=== PATIENT | male | born 1955 | race Caucasian/White ===

== ENCOUNTER → 2017-12-16 | Outpatient (CLI) | payer OTHER ==
[~2017-12-16] MED LIST: ACET650S21 PO; ASPI-621 PO; OXYC5CAP2 PO
[2017-12-16 14:01] LABS: BASOPHILS # (AUTO) 0.03 x10^3/uL (0-0.1); BASOPHILS % (AUTO) 0 % (0-1); EOSINOPHILS # (AUTO) 0.24 x10^3/uL (0-0.4); EOSINOPHILS % (AUTO) 3 % (1-7); LYMPHOCYTES % (AUTO) 25 % (22-44); MD NO; MEAN CORPUSCULAR HEMOGLOBIN 31.9 pg (27.5-34.5); MEAN CORPUSCULAR VOLUME 93.8 fL (81-97); MONOCYTES # (AUTO) 0.73 x10^3/uL (0.2-0.8); MONOCYTES % (AUTO) 9 % (2-9); NEUTROPHILS # (AUTO) 5.37 x10^3/uL (1.8-6.8); NEUTROPHILS % (AUTO) 63 % (42-75); PLATELET COUNT 240 x10^3/uL (130-400); RED BLOOD COUNT 5.44 x10^6/uL (4.38-5.82); RED CELL DISTRIBUTION WIDTH 13.4 % (9.4-14.8)
[2017-12-16 15:08] LABS: MICROSCOPIC NOT IND
[2017-12-16 15:11] LABS: CULTURE INDICATED? NO
== END | disposition home or self-care (01) ==
LOC: STAR 12:58
PROVIDERS: ATTEND Orthopaedic Surgery
DX: Z01.818 Encounter for other preprocedural examination (principal); M16.12 Unilateral primary osteoarthritis, left hip
CPT/HCPCS: 36415; 81003; 85025; 87081; 93005

== ENCOUNTER 2017-12-20 09:32 | Inpatient (IN) | payer OTHER ==
[~2017-12-20] VITALS: Ht 175.3 cm; Wt 91.7 kg
[~2017-12-20 09:32] MED LIST changes: -ACET650S21 PO; -ASPI-621 PO; +EPINEPHRINE 1 MG/ML, 1ML ONE; +FENTANYL PF 100 MCG/2ML ONE; +KETOROLAC 60 MG/2 ML ONE; +MIDAZOLAM 1 MG/ML, 2ML ONE; -OXYC5CAP2 PO; +PROPOFOL 100 ML ONE; +SODIUM CHLORIDE 0.9% 100 ML ONE; +TRANEXAMIC ACID 100 MG/ML, 10ML ONE
[2017-12-20] MEDS ORDERED: LACTATED RINGERS 1,000 ML IV SCH (09:46)
[2017-12-20] MEDS ORDERED: ACETAMINOPHEN 500 MG TABLET PO ONE (10:00)
[2017-12-20] MEDS ORDERED: OxyconTIN ER 10 MG TAB.ER PO ONE (10:00)
[2017-12-20] MEDS ORDERED: GABAPENTIN 300 MG CAPSULE PO ONE (10:00)
[2017-12-20] MEDS ORDERED: LABETALOL 5MG/ML, 20ML ONE (10:13)
[2017-12-20] MEDS ORDERED: ONDANSETRON 2MG/ML, 2ML ONE (10:13)
[2017-12-20] MEDS ORDERED: DEXAMETHASONE 4 MG/ML, 1ML ONE (10:13)
[2017-12-20] MEDS ORDERED: SUCCINYLCHOLINE 20 MG/ML, 10ML ONE (10:13)
[2017-12-20] MEDS ORDERED: ROCURONIUM 10 MG/ML,10ML ONE (10:13)
[2017-12-20] MEDS ORDERED: CEFAZOLIN 1,000 MG ONE (10:13)
[2017-12-20] MEDS ORDERED: FENTANYL PF 250 MCG/5ML ONE (10:27)
[2017-12-20] MEDS ORDERED: PROMETHAZINE 25 MG/ML, 1ML IV PRN (11:00)
[2017-12-20] MEDS ORDERED: morphine SULFATE 10 MG/ML, 1ML IV PRN (11:00)
[2017-12-20] MEDS ORDERED: ONDANSETRON 2MG/ML, 2ML IVPush PRN (11:00)
[2017-12-20] MEDS ORDERED: HYDROcodone/APAP 7.5-325MG/15ML UDC PO PRN (11:00)
[2017-12-20] MEDS ORDERED: hydrALAzine 20 MG/ML, 1ML IV PRN (11:00)
[2017-12-20] MEDS ORDERED: LABETALOL 5MG/ML, 20ML IV PRN (11:00)
[2017-12-20] MEDS ORDERED: OXYcodone 5 MG/5 ML ORAL.SOL UDC PO PRN (11:00)
[2017-12-20] MEDS ORDERED: MEPERIDINE/PF 50 MG/ML ONE (12:17)
[2017-12-20] MEDS: MEPERIDINE/PF 25MG/0.5ML IVPush PRN ×2 (12:20→12:38)
[2017-12-20] MEDS ORDERED: ZOLPIDEM 5MG TABLET PO PRN (12:30)
[2017-12-20] MEDS ORDERED: OXYcodone IR 5MG TABLET PO PRN (12:30)
[2017-12-20] MEDS ORDERED: BISACODYL 10 MG SUPP PR PRN (12:30)
[2017-12-20] MEDS ORDERED: PROMETHAZINE 25 MG/ML, 1ML IM PRN (12:30)
[2017-12-20] MEDS ORDERED: PROMETHAZINE 12.5 MG SUPP PR PRN (12:30)
[2017-12-20] MEDS ORDERED: ONDANSETRON 2MG/ML, 2ML IV PRN (12:30)
[2017-12-20] MEDS ORDERED: SENNA/DOCUSATE TABLET PO PRN (12:30)
[2017-12-20] MEDS ORDERED: ALUMINUM/MAG/SIMETHICONE 30 ML UDC PO PRN (12:30)
[2017-12-20] MEDS ORDERED: ONDANSETRON 4 MG TABLET PO PRN (12:30)
[2017-12-20] MEDS ORDERED: HYDROmorphone 1 MG/ML, 1ML IV PRN (12:30)
[2017-12-20] MEDS ORDERED: DIPHENHYDRAMINE 50 MG CAPSULE PO PRN (12:30)
[2017-12-20] MEDS ORDERED: MAGNESIUM HYDROXIDE 8%, 30ML UDC PO PRN (12:30)
[2017-12-20] MEDS ORDERED: DIAZEPAM 5 MG TABLET PO PRN (12:30)
[2017-12-20] MEDS ORDERED: ACETAMINOPHEN 650 MG/20.3 ML UDC PO PRN (12:30)
[2017-12-20] MEDS ORDERED: TRANEXAMIC ACID 1,000 MG in SODIUM CHLORIDE 0.9% 100 ML IVPB ONE (12:40)
[2017-12-20] MEDS ORDERED: FENTANYL PF 100 MCG/2ML ONE (12:43)
[2017-12-20] MEDS: FENTANYL PF 100 MCG/2ML IV PRN ×2 (12:48→12:58)
[2017-12-20 13:15] VITALS: BP 100/70
[2017-12-20] MEDS ORDERED: LIDOCAINE 4%, 4 ML SYR/CANN TP ONE ×2 (13:45)
[2017-12-20] MEDS ORDERED: EPHEDRINE 50 MG/ML, 1ML ONE ×2 (13:49)
[2017-12-20] MEDS: KETOROLAC 30 MG/1 ML IV SCH ×2 (13:55→21:33)
[2017-12-20] MEDS: OXYcodone IR 5MG TABLET PO SCH ×3 (13:55→21:35)
[2017-12-20] MEDS: TAMSULOSIN 0.4 MG CAP.ER.24H PO SCH (13:55)
[2017-12-20] MEDS: ACETAMINOPHEN 650 MG/20.3 ML UDC PO SCH ×2 (14:05→20:00)
[2017-12-20] MEDS: D5%-0.45% NACL 1,000 ML IV SCH ×2 (15:00→18:50)
[2017-12-20] MEDS ORDERED: CEFAZOLIN PMX 2GM/50ML 50 ML IVPB SCH (17:00)
[2017-12-20 18:36] VITALS: BP 104/66
[2017-12-20] MEDS: DOCUSATE 100 MG CAPSULE PO SCH (21:00)
[2017-12-21] MEDS ORDERED: CEFAZOLIN 2,000 MG in DEXTROSE 5% 100 ML IVPB SCH (01:00)
[2017-12-21 01:04] VITALS: BP 99/58
[2017-12-21] MEDS: D5%-0.45% NACL 1,000 ML IV SCH ×2 (01:30→08:10)
[2017-12-21] MEDS: OXYcodone IR 5MG TABLET PO SCH ×3 (01:57→09:42)
[2017-12-21] MEDS: ACETAMINOPHEN 650 MG/20.3 ML UDC PO SCH ×2 (02:00→07:53)
[2017-12-21] MEDS: KETOROLAC 30 MG/1 ML IV SCH ×2 (04:39→11:04)
[2017-12-21] MEDS ORDERED: DEXAMETHASONE 4 MG/ML, 1ML IVPush SCH (06:00)
[2017-12-21] MEDS ORDERED: ASPIRIN 81 MG TABLET EC PO SCH (06:00)
[2017-12-21] MEDS: DOCUSATE 100 MG CAPSULE PO SCH (07:53)
[2017-12-21] MEDS: TAMSULOSIN 0.4 MG CAP.ER.24H PO SCH (07:53)
[2017-12-21 08:06] VITALS: BP 95/62
[2017-12-21] MEDS ORDERED: ASPI-621 PO ×2 (08:58→10:18)
[2017-12-21] MEDS ORDERED: ACET650S21 PO (08:58)
[2017-12-21] MEDS ORDERED: MULTIVITAMINS/MINERALS TABLET PO SCH (09:00)
[2017-12-21] MEDS ORDERED: OXYC5CAP2 PO (10:16)
[2017-12-21 11:46] VITALS: BP 123/69
== END 2017-12-21 11:55 | disposition home or self-care (01) | DRG 470 ==
LOC: ORIP 09:32 → 4NOR 13:10 → DCLOUNGE 12-21 11:45
PROVIDERS: ADMIT Orthopaedic Surgery; ATTEND Orthopaedic Surgery
PROC: 0SRB01A Replacement of Left Hip Joint with Metal Synthetic Substitute, Uncemented, Open Approach (ICD-10-PCS; principal; 2017-12-20 10:15)
DX: M16.12 Unilateral primary osteoarthritis, left hip (principal); Z87.891 Personal history of nicotine dependence
CPT/HCPCS: 36415; 72170; 85014; 85018; 86850; 86900; C1713; J0171; J0690; J1100; J1885; J2175; J2250; J2405; J2704; J3010; C1776; J0330; J7120